=== PATIENT | female | born 2000 | race African-American/Black ===

== ENCOUNTER 2021-12-13 16:07 | Emergency (ER) | payer OTHER ==
[~2021-12-13] VITALS: Ht 152.4 cm; Wt 53.2 kg
[2021-12-13 16:08] VITALS: BP 110/74
[2021-12-13 19:14] LABS: HEMATOCRIT 48.1 % (36.0-47.0); HEMOGLOBIN 15.6 g/dl (12.0-15.5); MEAN CORPUSCULAR HEMOGLOBIN 29.9 pg (27.0-33.0); MEAN CORPUSCULAR HGB CONC 32.4 g/dl (32.0-36.5); MEAN CORPUSCULAR VOLUME 92.1 fl (80.0-96.0); PLATELET COUNT, AUTOMATED 177 10^3/uL (150-450); RED BLOOD COUNT 5.22 10^6/uL (4.00-5.40); WHITE BLOOD COUNT 4.4 10^3/uL (4.0-10.0)
[2021-12-13 19:36] LABS: AMPHETAMINES LEVEL URINE NEGATIVE (NEGATIVE); BARBITURATES URINE NEGATIVE (NEGATIVE); BENZODIAZEPINES URINE NEGATIVE (NEGATIVE); CANNABINOIDS URINE POSITIVE (NEGATIVE); COCAINE METABOLITE URINE NEGATIVE (NEGATIVE); METHADONE URINE NEGATIVE (NEGATIVE); OPIATES URINE NEGATIVE (NEGATIVE); PHENCYCLIDINE URINE NEGATIVE (NEGATIVE)
[2021-12-13 19:50] LABS: HCG, SERUM QUALITATIVE NEGATIVE (NEGATIVE)
[2021-12-13 20:15] LABS: ACETAMINOPHEN LEVEL < 2.0 UG/ML (10.0-30.0); ALBUMIN 4.3 GM/DL (3.2-5.2); ALT/SGPT 22 U/L (12-78); BILIRUBIN,DIRECT 0.3 MG/DL (0.0-0.2); BLOOD UREA NITROGEN 10 MG/DL (7-18); CARBON DIOXIDE LEVEL 27 MEQ/L (21-32); CHLORIDE LEVEL 104 MEQ/L (98-107); CREATININE FOR GFR 0.83 MG/DL (0.55-1.30); ETHYL ALCOHOL (ETHANOL) 0.006 % (0.000-0.010); GLOMERULAR FILTRATION RATE > 60.0 (>60); GLUCOSE, FASTING 79 MG/DL (70-100); POTASSIUM SERUM 4.2 MEQ/L (3.5-5.1); SALICYLATE LEVEL < 1.7 MG/DL (5.0-30.0); SODIUM LEVEL 136 MEQ/L (136-145); THYROID STIMULATING HORMONE 0.939 uIU/ML (0.358-3.740); TOTAL PROTEIN 8.6 GM/DL (6.4-8.2)
[2021-12-13 21:32] LABS: RSV AMPLIFICATION NEGATIVE (NEGATIVE)
== END 2021-12-13 21:58 | disposition home or self-care (01) ==
LOC: M ED 16:07
DX: F31.9 Bipolar disorder, unspecified (principal); F32.A Depression, unspecified; F20.9 Schizophrenia, unspecified; F10.10 Alcohol abuse, uncomplicated

== ENCOUNTER 2023-10-05 12:48 | Inpatient (IN) | payer OTHER ==
[~2023-10-05] VITALS: Ht 154.9 cm; Wt 77.5 kg
[2023-10-05 13:57] LABS: HEMATOCRIT 39.1 % (36.0-47.0); HEMOGLOBIN 12.9 g/dl (12.0-15.5); MEAN CORPUSCULAR HEMOGLOBIN 28.4 pg (27.0-33.0); MEAN CORPUSCULAR VOLUME 86.1 fl (80.0-96.0); PLATELET COUNT, AUTOMATED 350 10^3/uL (150-450); RED BLOOD COUNT 4.54 10^6/uL (4.00-5.40); WHITE BLOOD COUNT 5.6 10^3/uL (4.0-10.0)
[2023-10-05 14:19] LABS: AMPHETAMINES LEVEL URINE NEGATIVE (NEGATIVE); BENZODIAZEPINES URINE NEGATIVE (NEGATIVE)
[2023-10-05 14:20] LABS: BARBITURATES URINE NEGATIVE (NEGATIVE); COCAINE METABOLITE URINE NEGATIVE (NEGATIVE); METHADONE URINE NEGATIVE (NEGATIVE); OPIATES URINE NEGATIVE (NEGATIVE); PHENCYCLIDINE URINE NEGATIVE (NEGATIVE)
[2023-10-05 14:21] LABS: CANNABINOIDS URINE POSITIVE (NEGATIVE)
[2023-10-05 14:22] LABS: ETHYL ALCOHOL (ETHANOL) < 0.003 % (0.000-0.010)
[2023-10-05 14:23] LABS: ALBUMIN 4.1 G/DL (3.2-5.2); ALKALINE PHOSPHATASE 53 U/L (46-116); ALT/SGPT 38 U/L (7.0-40); AST/SGOT 30 U/L (<34); BILIRUBIN,DIRECT 0.4 MG/DL (<0.4); BILIRUBIN,TOTAL 1.3 MG/DL (0.3-1.2); BLOOD UREA NITROGEN 8 MG/DL (9-23); CALCIUM LEVEL 8.8 MG/DL (8.5-10.1); CARBON DIOXIDE LEVEL 23 MMOL/L (20-31); CHLORIDE LEVEL 109 MMOL/L (98-107); CREATININE FOR GFR 0.84 MG/DL (0.55-1.30); GLOMERULAR FILTRATION RATE > 60.0 (>60); GLUCOSE, FASTING 88 MG/DL (60-100); POTASSIUM SERUM 3.9 MMOL/L (3.5-5.1); SODIUM LEVEL 137 MMOL/L (136-145); TOTAL PROTEIN 7.1 G/DL (5.7-8.2)
[2023-10-05 14:24] LABS: SALICYLATE LEVEL < 3.0 MG/DL (<30)
[2023-10-05 14:26] LABS: THYROID STIMULATING HORMONE 0.908 uIU/ML (0.55-4.78)
[2023-10-05 14:27] LABS: HCG, SERUM QUALITATIVE NEGATIVE (NEGATIVE)
[2023-10-05] MEDS ORDERED: IBUP200C25 PO (19:28)
[2023-10-05] MEDS ORDERED: MIRENA IUD (19:28)
[2023-10-05] MEDS ORDERED: MED REC CURRENTLY UNOBTAINABLE XX SCH (19:30)
[2023-10-05] MEDS: LORazepam 0.5 MG TAB PO ONE (21:35)
[2023-10-06] MEDS: MIRTAZAPINE 15 MG TAB PO STA (02:47)
[2023-10-06] MEDS ORDERED: HOME MED LIST COMPLETE! XX SCH (08:10)
[2023-10-06] MEDS ORDERED: MAALOX 30 ML SUSP *UDC PO PRN (13:00)
[2023-10-06] MEDS ORDERED: ACETAMINOPHEN TAB 650MG DOSE (2X325MG) PO PRN (13:00)
[2023-10-06] MEDS ORDERED: MOM 30ML SUSPENSION UDC PO PRN (13:00)
[2023-10-06 16:54] VITALS: BP 129/73; TEMP 98.6; O2SAT 99
[2023-10-07 06:14] VITALS: BP 117/74; TEMP 97.1; O2SAT 100
[2023-10-07] MEDS: DIVALPROEX 500MG *ER* TAB PO SCH (09:00)
[2023-10-07] MEDS: OLANZapine 10 MG TAB PO SCH (09:00)
[2023-10-08 06:43] VITALS: BP 124/80; TEMP 98; O2SAT 100
[2023-10-08 16:37] VITALS: BP 122/70; TEMP 97.9; O2SAT 100
[2023-10-09 06:08] VITALS: BP 135/56; TEMP 98.2; O2SAT 99
[2023-10-09 17:16] VITALS: BP 136/85; TEMP 97.3; O2SAT 99
[2023-10-09] MEDS: traZODone 50 MG TAB PO PRN (22:57)
[2023-10-10 06:31] VITALS: BP 118/66; TEMP 97.6; O2SAT 100
[2023-10-10] MEDS: DIVALPROEX 500MG *ER* TAB PO SCH (08:45)
[2023-10-10 18:33] VITALS: BP 133/78; TEMP 97.9; O2SAT 98
[2023-10-10] MEDS: hydrOXYzine 50 MG TAB PO SCH (20:19)
[2023-10-11 05:45] VITALS: BP 131/78; TEMP 97.1; O2SAT 100
[2023-10-11 15:52] VITALS: BP 118/66; TEMP 98.1; O2SAT 99
[2023-10-12 06:16] VITALS: BP 116/73; TEMP 97; O2SAT 100
[2023-10-12] MEDS: IBUPROFEN 400MG TAB PO PRN (08:48)
[2023-10-12 16:38] VITALS: BP 127/71; TEMP 98.1; O2SAT 100
[2023-10-13 05:44] VITALS: BP 141/68; TEMP 98; O2SAT 100
[2023-10-13 18:33] VITALS: BP 133/80; TEMP 97.2
[2023-10-14 06:11] VITALS: BP 132/83; TEMP 98.1; O2SAT 96
[2023-10-14 17:40] VITALS: BP 118/63; TEMP 98.1; O2SAT 100
[2023-10-15] MEDS: diphenhydrAMINE 25MG CAP PO PRN (01:51)
[2023-10-15 16:11] VITALS: BP 115/78; TEMP 97.5
[2023-10-16 06:40] VITALS: BP 126/67; TEMP 98; O2SAT 100
[2023-10-16 16:50] VITALS: BP 127/68; TEMP 98.2; O2SAT 100
[2023-10-17 06:35] VITALS: BP 121/64; TEMP 97.2; O2SAT 96
[2023-10-17] MEDS ORDERED: DEPA500T2 PO (08:01)
[2023-10-17] MEDS ORDERED: OLAN1TAB20 PO (08:01)
[2023-10-17] MEDS ORDERED: HYDR50TA70 PO (08:01)
[2023-10-17] MEDS ORDERED: TRAZ-252 PO ×2 (10:23→13:33)
== END 2023-10-17 10:52 | disposition home or self-care (01) | DRG 885 ==
LOC: M ED 12:48 → M ED INP 10-06 12:58 → M PSY 10-06 15:34
PROVIDERS: ADMIT Psychiatry & Neurology Child & Adolescent Psychiatry; ATTEND Psychiatry & Neurology Child & Adolescent Psychiatry
DX: F31.10 Bipolar disorder, current episode manic without psychotic features, unspecified (principal); R45.851 Suicidal ideations; F12.90 Cannabis use, unspecified, uncomplicated; Z97.5 Presence of (intrauterine) contraceptive device

== ENCOUNTER → 2023-10-23 | Outpatient (REF) | payer OTHER ==
[~2023-10-23] MED LIST: DEPA500T2 PO; HYDR50TA70 PO; IBUP200C25 PO; MIRENA IUD; OLAN1TAB20 PO; TRAZ-252 PO
[2023-10-23 18:58] LABS: APPEARANCE, URINE CLEAR (CLEAR); BACTERIA, URINE AUTO NEGATIVE (NEGATIVE); BILIRUBIN, URINE AUTO NEGATIVE (NEGATIVE); BLOOD, URINE BLOOD NEGATIVE (NEGATIVE); COLOR, URINE YELLOW (YELLOW); GLUCOSE, URINE (UA) AUTO NEGATIVE (NEGATIVE); KETONE, URINE AUTO TRACE mg/dL (NEGATIVE); LEUKOCYTE ESTERASE, URINE AUTO NEGATIVE (NEGATIVE); MUCUS, URINE SMALL (NEGATIVE); NITRITE, URINE AUTO NEGATIVE (NEGATIVE); PROTEIN, URINE AUTO NEGATIVE (NEGATIVE); RBC, URINE AUTO 0 /HPF (0-3); SPECIFIC GRAVITY URINE AUTO 1.015 (1.002-1.035); SQUAMOUS EPITHELIAL CELL UR AU 2 /HPF (0-6); UROBILINOGEN, URINE AUTO 0.2 mg/dL (0.0-2.0); WBC, URINE AUTO 1 /HPF (0-3)
[2023-10-23 19:20] LABS: HCG, SERUM QUANTITATIVE < 2.6 MIU/ML (<4.2)
[2023-10-23 19:36] LABS: HCG, SERUM QUALITATIVE NEGATIVE (NEGATIVE)
== END ==
LOC: M LAB REF 17:55
PROVIDERS: ATTEND Physician Assistant
DX: Z32.00 Encounter for pregnancy test, result unknown (principal)

== ENCOUNTER → 2023-11-20 | Outpatient (CLI) | payer OTHER ==
[~2023-11-20] MED LIST changes: +ARIP1TAB6; +DIVA500T9; +OLAN7.5T8
[2023-11-20 14:50] LABS: HEMATOCRIT 42.5 % (36.0-47.0); HEMOGLOBIN 13.7 g/dl (12.0-15.5); MEAN CORPUSCULAR HGB CONC 32.2 g/dl (32.0-36.5); MEAN CORPUSCULAR VOLUME 86.9 fl (80.0-96.0); PLATELET COUNT, AUTOMATED 331 10^3/uL (150-450); RED BLOOD COUNT 4.89 10^6/uL (4.00-5.40); WHITE BLOOD COUNT 7.1 10^3/uL (4.0-10.0)
[2023-11-20 15:10] LABS: VALPROIC ACID (DEPAKOTE) 14.7 UG/ML (50.0-100.0)
[2023-11-20 15:11] LABS: ALBUMIN 3.7 G/DL (3.2-5.2); BILIRUBIN,DIRECT 0.2 MG/DL (<0.4); BILIRUBIN,TOTAL 0.7 MG/DL (0.3-1.2); TOTAL PROTEIN 7.5 G/DL (5.7-8.2)
== END ==
LOC: M LAB 14:00
PROVIDERS: ATTEND Psychiatry & Neurology Psychiatry
DX: F31.12 Bipolar disorder, current episode manic without psychotic features, moderate (principal)

== ENCOUNTER 2023-12-09 22:47 | Emergency (ER) | payer OTHER ==
[~2023-12-09] VITALS: Ht 154.9 cm; Wt 72.9 kg
[~2023-12-09 22:47] MED LIST changes: -ARIP1TAB6; -DIVA500T9; -OLAN7.5T8
[2023-12-09 22:49] VITALS: BP 132/77; TEMP 98.5; O2SAT 99
[2023-12-10] MEDS ORDERED: ARIP1TAB6 (08:05)
[2023-12-10] MEDS ORDERED: DIVA500T9 (08:05)
[2023-12-10] MEDS ORDERED: OLAN7.5T8 (08:05)
== END 2023-12-09 23:58 | disposition left against medical advice (07) ==
LOC: M ED 22:47
DX: Z53.21 Procedure and treatment not carried out due to patient leaving prior to being seen by health care provider (principal)

== ENCOUNTER 2023-12-10 07:46 | Emergency (ER) | payer OTHER ==
[~2023-12-10] VITALS: Ht 154.9 cm; Wt 73.3 kg
[2023-12-10 07:48] VITALS: BP 130/72; TEMP 97.1; O2SAT 100
[2023-12-10] MEDS ORDERED: OLAN7.5T8 (08:05)
[2023-12-10] MEDS ORDERED: DIVA500T9 (08:05)
[2023-12-10] MEDS ORDERED: ARIP1TAB6 (08:05)
== END 2023-12-10 09:58 | disposition left against medical advice (07) ==
LOC: M ED 07:46
DX: Z53.21 Procedure and treatment not carried out due to patient leaving prior to being seen by health care provider (principal)

== ENCOUNTER 2023-12-11 22:26 | Emergency (ER) | payer OTHER ==
[~2023-12-11] VITALS: Ht 154.9 cm; Wt 73.2 kg
[~2023-12-11 22:26] MED LIST changes: +ARIP1TAB6; +DIVA500T9; +OLAN7.5T8
[2023-12-12] MEDS: hydrOXYzine 50 MG TAB PO ONE (01:38)
[2023-12-12 01:45] VITALS: BP 119/86; TEMP 97.9; O2SAT 99
== END 2023-12-12 01:59 | disposition home or self-care (01) ==
LOC: EDBD 22:26 → M ED 22:26
DX: Z00.00 Encounter for general adult medical examination without abnormal findings (principal); Z76.0 Encounter for issue of repeat prescription; F41.9 Anxiety disorder, unspecified; F17.200 Nicotine dependence, unspecified, uncomplicated; F12.10 Cannabis abuse, uncomplicated; Z79.899 Other long term (current) drug therapy

== ENCOUNTER 2023-12-19 17:39 | Emergency (ER) | payer OTHER ==
[~2023-12-19] VITALS: Ht 154.9 cm; Wt 71.8 kg
[2023-12-19 17:43] VITALS: BP 139/87; TEMP 97; O2SAT 98
[2023-12-19] MEDS ORDERED: ABIL1TAB11 (18:21)
== END 2023-12-19 18:50 | disposition left against medical advice (07) ==
LOC: M ED 17:39
DX: Z53.21 Procedure and treatment not carried out due to patient leaving prior to being seen by health care provider (principal)

== ENCOUNTER 2023-12-25 20:55 | Emergency (ER) | payer OTHER ==
[~2023-12-25 20:55] MED LIST changes: +ABIL1TAB11
== END 2023-12-25 21:00 | disposition left against medical advice (07) ==
LOC: M ED 20:55
DX: Z53.21 Procedure and treatment not carried out due to patient leaving prior to being seen by health care provider (principal)

== ENCOUNTER 2024-01-26 21:35 | Emergency (ER) | payer OTHER ==
[~2024-01-26] VITALS: Ht 154.9 cm; Wt 70.9 kg
[2024-01-26 21:38] VITALS: BP 138/90; TEMP 97.6; O2SAT 99
== END 2024-01-27 00:17 | disposition left against medical advice (07) ==
LOC: M ED 01-27 00:08
DX: Z53.21 Procedure and treatment not carried out due to patient leaving prior to being seen by health care provider (principal)

== ENCOUNTER 2024-01-27 22:48 | Emergency (ER) | payer OTHER ==
[~2024-01-27] VITALS: Ht 154.9 cm; Wt 68.8 kg
[2024-01-27 22:54] VITALS: BP 116/71; TEMP 98; O2SAT 100
[2024-01-27 23:36] LABS: HEMOGLOBIN 13.8 g/dl (12.0-15.5); MEAN CORPUSCULAR HEMOGLOBIN 28.7 pg (27.0-33.0); MEAN CORPUSCULAR HGB CONC 32.9 g/dl (32.0-36.5); MEAN CORPUSCULAR VOLUME 87.3 fl (80.0-96.0); PLATELET COUNT, AUTOMATED 314 10^3/uL (150-450); RED BLOOD COUNT 4.81 10^6/uL (4.00-5.40); WHITE BLOOD COUNT 9.3 10^3/uL (4.0-10.0)
[2024-01-28 00:15] LABS: ETHYL ALCOHOL (ETHANOL) < 0.003 % (0.000-0.010)
[2024-01-28 00:17] LABS: ALKALINE PHOSPHATASE 56 U/L (35-104); ALT/SGPT 33 U/L (7.0-40); AST/SGOT 21 U/L (<34); BILIRUBIN,DIRECT 0.1 MG/DL (<0.4); BILIRUBIN,TOTAL 0.6 MG/DL (0.3-1.2); BLOOD UREA NITROGEN 12 MG/DL (9-23); CALCIUM LEVEL 9.5 MG/DL (8.5-10.1); CARBON DIOXIDE LEVEL 26 MMOL/L (20-31); CHLORIDE LEVEL 105 MMOL/L (98-107); CREATININE FOR GFR 0.76 MG/DL (0.55-1.30); GLOMERULAR FILTRATION RATE > 60.0 (>60); GLUCOSE, FASTING 79 MG/DL (60-100); HCG, SERUM QUALITATIVE NEGATIVE (NEGATIVE); POTASSIUM SERUM 3.7 MMOL/L (3.5-5.1); SALICYLATE LEVEL < 3.0 MG/DL (<30); SODIUM LEVEL 139 MMOL/L (136-145); TOTAL PROTEIN 7.4 G/DL (5.7-8.2)
[2024-01-28 00:19] LABS: THYROID STIMULATING HORMONE 2.058 uIU/ML (0.55-4.78)
[2024-01-28 00:51] LABS: PHENCYCLIDINE URINE NEGATIVE (NEGATIVE)
[2024-01-28 00:52] LABS: AMPHETAMINES LEVEL URINE NEGATIVE (NEGATIVE); BARBITURATES URINE NEGATIVE (NEGATIVE); BENZODIAZEPINES URINE NEGATIVE (NEGATIVE); COCAINE METABOLITE URINE NEGATIVE (NEGATIVE); METHADONE URINE NEGATIVE (NEGATIVE); OPIATES URINE NEGATIVE (NEGATIVE)
[2024-01-28 01:11] LABS: CANNABINOIDS URINE POSITIVE (NEGATIVE)
== END 2024-01-28 05:41 | disposition home or self-care (01) ==
LOC: M ED 22:48
DX: F43.0 Acute stress reaction (principal); F41.9 Anxiety disorder, unspecified; F32.A Depression, unspecified; Z79.899 Other long term (current) drug therapy; Z79.1 Long term (current) use of non-steroidal anti-inflammatories (NSAID)

== ENCOUNTER 2024-03-10 06:14 | Emergency (ER) | payer OTHER ==
[~2024-03-10] VITALS: Ht 154.9 cm; Wt 76.8 kg
[2024-03-10 06:17] VITALS: BP 122/73; TEMP 97.5; O2SAT 98
== END 2024-03-10 08:07 | disposition left against medical advice (07) ==
LOC: M ED 06:14
DX: Z53.21 Procedure and treatment not carried out due to patient leaving prior to being seen by health care provider (principal)